=== PATIENT | female | born 1935 | race Caucasian/White ===

== ENCOUNTER → 2017-05-08 | Outpatient (CLI) | payer MEDICARE ==
--- NOTE | 2017-05-08 15:41 | KCIC ---
Left lower extremity venous doppler ultrasound History: Left lower extremity pain and swelling, redness Comparison: None Findings: Multiple grayscale, color, and duplex spectral analysis sonographic images were acquired of the left lower extremity veins to evaluate for the presence of DVT. There is normal phasicity. Normal compression, color-flow, and augmentation is demonstrated from the left common femoral to the popliteal veins. There is normal color flow of the proximal profunda femoris vein. There is normal color flow of segments of the calf veins. There is soft tissue edema of the calf. Impression: 1. There is no evidence of deep venous thrombosis from the left common femoral to popliteal veins. 2. There is nonspecific soft tissue edema of the calf. Electronically signed by: Pedro Fulton MD (05/08/2017 3:38 PM) [facility]
== END | disposition home or self-care (01) ==
LOC: KCIC US 14:20
PROVIDERS: ATTEND Nurse Practitioner Adult Health
DX: M79.605 Pain in left leg (principal); R60.0 Localized edema
CPT/HCPCS: 93971

== ENCOUNTER → 2018-03-19 | Outpatient (CLI) | payer MEDICARE | END | disposition home or self-care (01) | LOC: KCIC US 13:28 | DX: M51.36 Other intervertebral disc degeneration, lumbar region (principal); M79.89 Other specified soft tissue disorders; M48.54XD Collapsed vertebra, not elsewhere classified, thoracic region, subsequent encounter for fracture with routine healing; M25.78 Osteophyte, vertebrae | CPT/HCPCS: 72148; 93971 ==

== ENCOUNTER → 2018-06-03 | Outpatient (CLI) | payer MEDICARE ==
[~2018-06-03] MED LIST: ALEN70TA5 PO; AMLO5TAB7 PO; GABA-586 PO; HYDR25TA9 PO; IOHEXOL 180 MG/ML 10 ML VIAL. ONE; LEVO75TA5 PO; LIDOCAINE 2% PF 2ML VIAL. ONE; LORA0.5T PO; PRAV40TA2 PO; methylPREDNISolone ACETATE 40 MG/ML VIAL. ONE; methylPREDNISolone ACETATE 80 MG/ML VIAL. ONE
--- NOTE | 2018-06-03 20:26 | PAIN ---
DATE OF SERVICE: 06/03/2018 CHIEF COMPLAINT: Low back and left lower extremity pain. HISTORY OF PRESENT ILLNESS: This is an 83-year-old female who presents with history of pain in the low back and left leg in the posterior gluteus, posterior thigh radiating to the posterior knee, posterior calf and into the ankle and foot with numbness in the foot on the left side. It has been going on for about a year on and off. It is getting much worse over the past 3-4 months. The patient reports it is worse with walking, standing, change in positions. She has been using a walker, which she normally does not over the past several months because of the pain. The patient reports it is sharp, shooting, intermittent in intensity with numbness in the foot, primarily worse after up and walking and worse in the evening. The patient reports it awakens her most of the night and every few hours. The pain in her back and leg does not affect her bowel or bladder control but does affect her ability to walk significantly and again, she is using a walker to ambulate at all times. The patient has had some trigger point injections in the past as well as some physical therapy and doing some stretching exercises on her own currently but not significantly decreasing the pain. The patient did have medication. She is not sure what the name of it was for the pain, but it did decrease it orally. The patient has had no other treatments, no other chiropractic manipulations or other therapies or treatments at this time. The patient rates her disability rate from 0-10, 10 being the worst, is a 6 with recreation and social activity, 5 with self-care, 4 with life support activities and 7 with family and home responsibilities. The patient did have an MRI scan of lumbar spine showing at the L4-L5 and L5-S1 levels, each with moderate posterior disk bulging and severe narrowing of the left neural foramen in part from disk osteophyte complex at L4-L5 as well as the posterior facets contacting the exiting left L4 nerve root. L5-S1 shows contact at the exiting left L5 nerve root again with significant narrowing of the distal left neural foramen and extraforaminal region. The patient reports no complete loss of motor function, significant fatigability, especially with the left leg. PAST MEDICAL HISTORY: Significant for arthritis, hypertension, history of colon cancer, now in remission, kidney stents, left foot neuropathy. PREVIOUS SURGERIES: Include colon resection and colostomy in 2009, cataract extraction bilaterally in the past. CURRENT MEDICATIONS: Include lorazepam, alendronate, pravastatin, hydrochlorothiazide, gabapentin, amlodipine, and levothyroxine. ALLERGIES: The patient has no known drug allergies. FAMILY HISTORY: Significant for no major conditions she is aware of. SOCIAL HISTORY: The patient does not smoke, does not drink alcohol, does not use any illegal or recreational drugs. Lives with her [id number] and lives locally in [place], [place] and is currently retired. REVIEW OF SYSTEMS: Positive for those items mentioned in history of present illness. All systems reviewed and were negative. It is complete, full and well documented on the patient's chart. PHYSICAL EXAMINATION: VITAL SIGNS: The patient's blood pressure is 154/73, pulse is 80, respirations are 20, temperature 97.3 degrees Fahrenheit, height is 5 feet 0 inches, weight is 167 pounds. GENERAL: The patient is awake, alert, oriented, appropriate, very pleasant demeanor. HEENT: Head shows normocephalic, atraumatic. Extraocular movements are intact, symmetrical. Oral cavity: Mucous membranes moist and pink. Dentition is intact. NECK: Shows anterior throat supple without palpable lymphadenopathy noted. Swallow reflex is symmetrical. CHEST: Shows normal on inspection. Breath sounds clear to auscultation bilaterally. HEART: Shows S1, S2 clear. No murmurs auscultated. ABDOMEN: Soft, nontender, nondistended. No palpable organomegaly is noted. No rebound or guarding demonstrated. BACK: Shows spine grossly in the midline. Normal appearing thoracic kyphosis and lumbar lordotic curvature. Lumbar paraspinous musculature shows symmetrical on inspection, on palpation shows some moderate tenderness but only diffusely and it is throughout the upper, middle and lower distribution of the paraspinous muscles without radiation, without trigger points. The patient has good rotational motion of lumbar spine, both laterally as well as extension and flexion without significant difficulty. LOWER EXTREMITIES: Show deep tendon reflexes at 1+ in the patellar and tendo calcaneus tendons. Motor exam is approximately 4 on a scale of 5 with left dorsiflexion, extension, 5/5 on the right, quadriceps and hamstring flexion 4/5 left, 5/5 right as well. Peripheral pulses are 1+ posterior tibia. No peripheral edema is noted. Lower extremities are warm and dry to touch, equal in color and appearance. Straight leg raise noted to be negative bilaterally for reproduction of radicular pain. Gaenslen's and Javi's maneuvers are negative bilaterally as well. The patient is able to stand, has difficulty trying to stand with all of her weight on her left leg as she does lose balance very quickly. Again, she is walking with a significant limping gait favoring the left lower extremity and uses a 4-point walker to ambulate. SKIN: Shows warm and dry, good turgor. No edema. No sores, rashes or bruising. IMPRESSION: 1. This is an 83-year-old female with approximate 1-year history of low back, left lower extremity pain, worse over the past several months in a radicular fashion. 2. MRI scan of lumbar spine as noted. 3. Arthritis. 4. Hypertension. 5. History of colon cancer. PLAN: Options were discussed with the patient including conservative medical management, physical therapy, interventional techniques. She would like to pursue interventional techniques. We discussed a lumbar epidural steroid injection using descriptions as well as anatomical models to describe the procedure. Risks were then discussed including, but not limited to bleeding, infection, possibility of epidural hematoma and subsequent neurological compromise, dural puncture, headaches, spinal cord and/or nerve damage, side effects of steroid medication and poor results regarding pain control. The patient understands and wished to proceed. The patient will return to clinic in approximately 2 weeks for followup. She was counseled to return appointment, activity level and side effects to be aware of. DIAGNOSES: Lumbar radiculopathy with lumbar degenerative disk disease and lumbar spinal stenosis. PROCEDURE: Lumbar epidural steroid injection, translaminar approach at the L5-S1 level using C-arm fluoroscopic guidance under sterile prep and drape using local anesthetic. MEDICATION INJECTED: A total of 120 mg Depo-Medrol plus 10 mL of preservative-free normal saline and 2 mL of Isovue for contrast. CONDITION AT DISCHARGE: Stable. The patient tolerated procedure well, had no complications. MITCHELL LEAL MD DR: ELBERT/keanu JOB#: [id number] / [id number] ecc ABRAHAM MULTANI MD
== END | disposition home or self-care (01) ==
LOC: PNCL 09:25
PROVIDERS: ATTEND Anesthesiology
DX: M51.16 Intervertebral disc disorders with radiculopathy, lumbar region (principal); M48.061 Spinal stenosis, lumbar region without neurogenic claudication; I10 Essential (primary) hypertension; M19.90 Unspecified osteoarthritis, unspecified site; Z85.038 Personal history of other malignant neoplasm of large intestine; G62.9 Polyneuropathy, unspecified; Z90.49 Acquired absence of other specified parts of digestive tract; Z93.3 Colostomy status; Z98.42 Cataract extraction status, left eye; Z98.41 Cataract extraction status, right eye; Z96.1 Presence of intraocular lens; Z79.899 Other long term (current) drug therapy
CPT/HCPCS: 62323; J1030; J1040; J2001; Q9965

== ENCOUNTER → 2018-06-18 | Outpatient (CLI) | payer MEDICARE ==
[~2018-06-18] MED LIST changes: -IOHEXOL 180 MG/ML 10 ML VIAL. ONE; -LIDOCAINE 2% PF 2ML VIAL. ONE; -methylPREDNISolone ACETATE 40 MG/ML VIAL. ONE; -methylPREDNISolone ACETATE 80 MG/ML VIAL. ONE
--- NOTE | 2018-06-18 19:18 | PAIN ---
DATE OF SERVICE: 06/18/2018 DIAGNOSES: Lumbar radiculopathy with lumbar spinal stenosis, lumbar degenerative disk disease low. HISTORY OF PRESENT ILLNESS: The patient is an 83-year-old female who returns for followup status post lumbar epidural steroid injection x 1. The patient reports about 80% improvement overall, is feeling much better. The pain in her left leg is almost completely gone. She has some numbness in the left foot only, but is not bothering her much at all. The patient reports she is doing quite well. Reports her pain is 0 on a scale of 10 on average, worst and its least and is 0 today. The patient reports she has been increasing her activities with greater ease and comfort, sleeping better, walking with her cane still, not a walker. She get rid of her walker, using a cane now in her right hand, increased household activities, increased ability to get in and out of a car and traveling. The patient reports she is doing quite well, is very pleased with her progress: The patient reports no new motor or sensory deficits, no new bowel or bladder incontinence or other complaints. PHYSICAL EXAMINATION: VITAL SIGNS: Today, the patient's blood pressure is 140/77, pulse 77, respirations are 20, temperature 97.4 degrees Fahrenheit, weight is 165 pounds. GENERAL: The patient is awake, alert, oriented, appropriate, very pleasant demeanor. HEENT: Head is normocephalic, atraumatic. Extraocular movements are intact, symmetrical. Oral cavity: Mucous membranes moist and pink. Dentition is intact. NECK: Shows anterior throat supple without palpable lymphadenopathy noted. Swallow reflex symmetrical. CHEST: Shows normal on inspection. Breath sounds clear to auscultation bilaterally. HEART: Shows S1, S2 clear. No murmurs auscultated. ABDOMEN: Soft, nontender, nondistended. No palpable organomegaly is noted. No rebound or guarding demonstrated. BACK: The patient's back shows spine grossly in the midline. Slight exaggeration of thoracic kyphosis and minor flattening of lumbar lordotic curvature. Lumbar paraspinous muscle shows symmetrical on inspection and palpation shows some moderate tenderness bilaterally, but only diffusely without significant radiation. The patient has good rotational motion of lumbar spine, both laterally as well as extension and flexion without difficulty. No tenderness over the sacrum, sacroiliac regions or over the spinous processes. EXTREMITIES: Lower extremities show deep tendon reflexes at 1+ in the patellar and tendo calcaneus tendons. Motor exam is strong with mostly 4 on a scale 5 on the left and 5/5 on the right dorsiflexion, extension, but intact. Peripheral pulses are 1+ posterior tibia. No peripheral edema is noted. Options were discussed with the patient. The patient's old chart was reviewed as her current medication regimen updated. Current review of systems updated today as well and she would like to hold on any further injections at this time. We will have her increase her activity as tolerated. Continue with daily walking and stretching and strengthening exercises. The patient will follow up this time on as needed basis. MITCHELL LEAL MD DR: ELBERT/nts JOB#: [id number] / [id number]
== END | disposition home or self-care (01) ==
LOC: PNCL 09:42
PROVIDERS: ATTEND Anesthesiology
DX: M51.16 Intervertebral disc disorders with radiculopathy, lumbar region (principal); M48.061 Spinal stenosis, lumbar region without neurogenic claudication
CPT/HCPCS: G0463

== ENCOUNTER → 2018-07-21 | Outpatient (CLI) | payer MEDICARE ==
[~2018-07-21] MED LIST changes: +IOHEXOL 180 MG/ML 10 ML VIAL. ONE; +methylPREDNISolone ACETATE 40 MG/ML VIAL. ONE; +methylPREDNISolone ACETATE 80 MG/ML VIAL. ONE
--- NOTE | 2018-07-21 20:21 | PAIN ---
DATE OF SERVICE: 07/21/2018 PROGRESS NOTE FOR PAIN CLINIC DIAGNOSES: Lumbar radiculopathy with lumbar spinal stenosis and lumbar degenerative disk disease. HISTORY OF PRESENT ILLNESS: The patient is an 83-year-old female who returns for followup status post lumbar epidural steroid injection x 1. The patient reports about 75%-80% improvement initially but now, the pain is returning in the low back and left lower extremity. The patient reports it is much better than it was, still worse at night and if the patient has been on her feet for a long period of time with a dull aching pain in the low back, described as dull and shooting in the left gluteus and thigh. The patient reports it is a 5 on a scale of 10 at all times, average, worst and its least and is a 5 today. The patient reports no new motor or sensory deficits and no new bowel or bladder incontinence. It awakens her from sleep occasionally if she lies on her left side, otherwise doing fairly well. PHYSICAL EXAMINATION: VITAL SIGNS: The patient's blood pressure 159/74, pulse 71, respirations 18 and temperature is 97.4 degrees Fahrenheit. Height is 5 feet 0 inch and weight is 171 pounds. GENERAL: The patient is awake, alert, oriented, appropriate and very pleasant demeanor. HEENT: Head shows normocephalic and atraumatic. Extraocular movements are intact and symmetrical. Oral cavity: Mucous membranes are moist and pink. Dentition is intact. NECK: Shows anterior throat supple without palpable lymphadenopathy noted. Swallow reflex symmetrical. CHEST: Shows normal on inspection. Breath sounds clear to auscultation bilaterally. HEART: Shows S1 and S2 clear. No murmurs auscultated. ABDOMEN: Soft, nontender and nondistended. No palpable organomegaly is noted. No rebound or guarding demonstrated. BACK: Shows spine grossly in the midline. Normal appearing thoracic kyphosis and some minor flattening of the lumbar lordotic curvature. Lumbar paraspinous muscle shows symmetrical on inspection, on palpation shows some moderate tenderness diffusely bilaterally but only diffusely without radiation. EXTREMITIES: The patient's lower extremities show deep tendon reflexes 1+ in the patellar and tendo-calcaneus tendons are equal. Motor exam is strong with approximately 4 on a scale of 5, left dorsiflexion and extension, 5/5 on the right. The patient's peripheral pulses are 1+ posterior tibia. No peripheral edema is noted bilaterally. Options were discussed with the patient. The patient's old chart was reviewed as well as her current medication regimen updated. Current review of systems updated today as well. We will proceed with a second in the series of lumbar epidural steroid injection today with fluoroscopic guidance. Risks were again discussed including, but not limited to bleeding, infection, possibility of epidural hematoma and subsequent neurological compromise, dural puncture, headaches, spinal cord and/or nerve damage, side effects of steroid medication and poor results regarding pain control. The patient understands and wished to proceed. The patient will return to the clinic in approximately 2 weeks for followup, was counseled as to return appointment, activity level and side effects to be aware of. DIAGNOSIS: Lumbar radiculopathy with lumbar spinal stenosis and lumbar degenerative disk disease. PROCEDURE: Lumbar epidural steroid injection, translaminar approach at L5-S1 level using C-arm fluoroscopic guidance under sterile prep and drape using local anesthetic. MEDICATION INJECTED: A total of 120 mg Depo-Medrol plus 10 mL of preservative-free normal saline and 2 mL of Isovue for contrast. CONDITION AT DISCHARGE: Stable. The patient tolerated the procedure well and had no complications. MITCHELL LEAL MD DR: ELBERT/keanu JOB#: [id number] / [id number]
== END | disposition home or self-care (01) ==
LOC: PNCL 10:37
PROVIDERS: ATTEND Anesthesiology
DX: M51.16 Intervertebral disc disorders with radiculopathy, lumbar region (principal); M48.061 Spinal stenosis, lumbar region without neurogenic claudication
CPT/HCPCS: 62323; J1030; J1040; Q9965

== ENCOUNTER → 2018-08-07 | Outpatient (CLI) | payer MEDICARE ==
[~2018-08-07] MED LIST changes: +HYDR-2145 PO; -HYDR25TA9 PO; -IOHEXOL 180 MG/ML 10 ML VIAL. ONE; -methylPREDNISolone ACETATE 40 MG/ML VIAL. ONE; -methylPREDNISolone ACETATE 80 MG/ML VIAL. ONE
--- NOTE | 2018-08-07 20:52 | PAIN ---
DATE OF SERVICE: 08/07/2018 PROGRESS NOTE FOR PAIN CLINIC DIAGNOSES: Lumbar radiculopathy with lumbar degenerative disk disease and lumbar spinal stenosis. HISTORY OF PRESENT ILLNESS: The patient is an 83-year-old female who returns for followup status post lumbar epidural steroid injections x 2. The patient reports near 100 % improvement after her last injection, still lasting with no longer having significant pain in the low back or the left lower extremity. The patient reports her leg is doing much better. She is quite pleased with her progress, has no new motor or sensory deficits, no new bowel or bladder incontinence or other complaints. She is sleeping well at night, increased her distance walking, doing activities at the home, traveling with much greater ease and comfort and is doing quite well. The patient reports no new motor or sensory deficits. The patient reports her pain is a 0 on a scale of 10 at its worst, average and at its least and is a 0 today. The patient reports otherwise doing very well. PHYSICAL EXAMINATION: VITAL SIGNS: The patient's blood pressure is 122/66, pulse 87, respirations 18, temperature is 98.0 degrees Fahrenheit, height is 5 feet 0 inches and weight is 169 pounds. GENERAL: The patient is awake, alert, oriented, appropriate and very pleasant demeanor. HEENT: Shows normocephalic and atraumatic. Extraocular movements are intact and symmetrical. Oral cavity: Mucous membranes are moist and pink. Dentition is intact. NECK: Shows anterior throat is supple without palpable lymphadenopathy noted. Swallow reflex is symmetrical. CHEST: Shows normal with inspection. Breath sounds are clear to auscultation bilaterally. HEART: Shows S1 and S2 clear. No murmurs are auscultated. ABDOMEN: Soft, nontender and nondistended. No palpable organomegaly is noted. No rebound or guarding demonstrated. BACK: Shows spine grossly in the midline. Normal appearing thoracic kyphosis and lumbar lordotic curvature. Lumbar paraspinous muscle shows symmetrical on inspection. On palpation shows some moderate tenderness only diffusely without radiation. The patient has full rotational motion both laterally greater than 10 degrees, right and left as well as extension greater than 10 degrees, forward flexion 45 degrees without significant pain or discomfort. EXTREMITIES: The patient's lower extremities show deep tendon reflexes at 1+ in the patella and tendo calcaneus tendons. Motor exam is to approximately a 4 on a scale of 5 on the left dorsiflexion and extension and 5/5 on the right. Peripheral pulses are 1+ posterior tibial. No peripheral edema is noted bilaterally. PLAN: Options were discussed with the patient. The patient's old chart was reviewed as was her current medication regimen updated. Current review of systems updated today as well. We will hold on any further injections as the patient is doing quite well. Encouraged her to increase her activity as tolerated. She will still do some stretching and strengthening exercises that she has been doing on her own and walking as she is tries to do this daily. The patient will follow up at this time on as needed basis. MITCHELL LEAL MD DR: ELBERT/keanu JOB#: [id number] / [id number]
== END | disposition home or self-care (01) ==
LOC: PNCL 10:06
PROVIDERS: ATTEND Anesthesiology
DX: M51.16 Intervertebral disc disorders with radiculopathy, lumbar region (principal); M48.061 Spinal stenosis, lumbar region without neurogenic claudication
CPT/HCPCS: G0463

== ENCOUNTER → 2021-01-16 | Outpatient (CLI) | payer MEDICARE ==
[~2021-01-16] MED LIST changes: -ALEN70TA5 PO; +ALEN70TA71 PO; +AMLO-186 PO; -AMLO5TAB7 PO; -GABA-586 PO; +GABA300C18 PO
--- NOTE | 2021-01-16 11:21 | KCIC ---
MRI of the lumbar spine without contrast 01/16/2021 CLINICAL HISTORY: Low back pain with left leg weakness. TECHNIQUE: Unenhanced T1-weighted and T2-weighted sagittal and axial and inversion recovery sagittal images of the lumbar spine were obtained. FINDINGS: Comparison study is dated 03/19/2018. Mild to moderate S-shaped curvature of the thoracolumbar spine is seen. Degenerative signal changes a nd loss of height are seen involving all of the disks of the lumbar spine. Degenerative signal change s are seen within the marrow surrounding these discs. An old compression fracture of the superior end plate of the T12 vertebral body is again seen. No acute compression fracture of the lumbar vertebrae is noted. The patient appears to be post bilateral sacral plasty type procedure for old sacral insuff iciency fractures. The conus medullaris is normal morphology, position, and signal characteristics. A n oval-shaped high signal intensity structure is seen within the posterior right pelvis which measure s 3.9 cm in size. This may represent a right ovarian cyst. Multiple rounded high signal intensity les ions are seen scattered throughout both kidneys on the T2-weighted images. These measure 3 mm to 4.5 cm in size. They likely represent cysts. No further imaging evaluation is recommended. At the L1-2 disc space there is a mild generalized disc bulge. Degenerative changes are seen involvin g the facet joints bilaterally. There are small facet joint effusions bilaterally. There is mild liga mentum flavum hypertrophy bilaterally. These findings when combined do not result in significant cent ral spinal canal or neural foraminal stenosis. At the L2-3 disc space there is a mild generalized disc bulge. Degenerative changes are seen involvin g the facet joints bilaterally. There is mild ligamentum flavum hypertrophy bilaterally. These findin gs when combined do not result in significant central spinal canal or neural foraminal stenosis. At the L3-4 disc space there is a mild generalized disc bulge. Degenerative changes are seen involvin g the facet joints bilaterally. There is mild ligamentum flavum hypertrophy bilaterally. These findin gs when combined do not result in significant central spinal canal stenosis. Mild left neural foramin al stenosis is seen. The right neural foramen is patent. At the L4-5 disc space there is a mild to moderate generalized disc bulge. This is eccentric to the l eft. Degenerative changes are seen involving the facet joints bilaterally. There is moderate ligament um flavum hypertrophy bilaterally. These findings when combined result in mild to moderate left great er than right central spinal canal stenosis. Moderate to severe left neural foraminal stenosis is see n. The right neural foramen is patent. At the L5-S1 disc space there is a mild to moderate generalized disc bulge. This is eccentric to the left. Degenerative changes are seen involving the facet joints bilaterally. These findings when combi radha do not result in significant central spinal canal stenosis. Mild to moderate left neural foramina l stenosis is seen. IMPRESSION: The changes of degenerative disc disease are seen throughout the lumbar spine. These find ings result in mild to moderate left greater than right central spinal canal stenosis at L4-5 and mil d left neural foraminal stenosis is seen at L3-4. Moderate to severe left neural foraminal stenosis i s seen at L4-5. Mild to moderate left neural foraminal stenosis is seen at L5-S1. Electronically signed by: Theodore Bauer MD (01/16/2021 11:19 AM) [id number]
== END ==
LOC: KCIC MRI 09:46
PROVIDERS: ATTEND Family Medicine
DX: S32.000A Wedge compression fracture of unspecified lumbar vertebra, initial encounter for closed fracture (principal); M51.36 Other intervertebral disc degeneration, lumbar region; M48.07 Spinal stenosis, lumbosacral region; R29.898 Other symptoms and signs involving the musculoskeletal system; X58.XXXA Exposure to other specified factors, initial encounter; Y93.89 Activity, other specified; Y92.89 Other specified places as the place of occurrence of the external cause; Y99.8 Other external cause status
CPT/HCPCS: 72148

== ENCOUNTER → 2021-01-30 | Outpatient (CLI) | payer MEDICARE ==
[~2021-01-30] MED LIST changes: +AMIT10TA PO; +IOHEXOL 180 MG/ML 10 ML VIAL. ONE; +methylPREDNISolone ACETATE 40 MG/ML VIAL. ONE; +methylPREDNISolone ACETATE 80 MG/ML VIAL. ONE
--- NOTE | 2021-01-30 11:54 | PDOC ---
Progress Note - Pain Clinic Date of Service: DOS: DATE: 01/30/21 TIME: 11:52 Diagnosis: Dx: Lumbar radiculopathy with lumbar degenerative disease lumbar spinal stenosis History or Present Illness: HPI: 85-year-old female returns for follow-up status post lumbar epidural steroid injections most recently in July 2018 patient had 100% improvement she reports until about the past 1 month ago the pain began to return the low back left lower extremity posterior gluteus posterior lateral thigh posterior calf with some numbness in the leg with walking and standing patient reports that before that he was doing very well increasing activity distance walking doing household activities try with greater ease and comfort and sleeping better at night patient reports he still sleeps well at night pain generally is not bothered she sitting or laying down is worse with standing walking especially standing in 1 place patient reports its aching and dull can be sharp and shooting in the leg as well in the left side patient reports a 5 on a scale of 10 at its worst for an average for its least is a 4 today. Patient reports no motor or sensory deficits no new bowel or bladder incontinence or other complaints. Physical Exam: VS: Blood pressure is 141/69 pulse 70 respirations 20 temperature is 98.2 F height 5 feet 0 inches weight 157 pounds PE: PHYSICAL EXAMINATION: GENERAL: The patient is awake, alert, oriented, appropriate, very pleasant demeanor HEENT: Shows normocephalic, atraumatic. Extraocular movements are intact and symmetrical. Oral cavity: Mucous membranes moist and pink. NECK: Shows anterior throat supple without palpable lymphadenopathy noted. Swallow reflex symmetrical. CHEST: Shows normal on inspection. Breath sounds are clear bilaterally. HEART: Shows S1, S2 clear. No murmurs auscultated. ABDOMEN: Soft, nontender, nondistended. No palpable organomegaly is noted. No rebound or guarding demonstrated. BACK: Shows spine grossly in the midline. Normal-appearing cervical lordotic curvature. There is some increased thoracic kyphosis, some minor flattening of the lumbar lordotic curvature. Well-healed surgical scar is noted in the midline. Lumbar paraspinous muscles show symmetrical on inspection, on palpation shows some moderate tenderness diffusely throughout the upper, middle and lower distribution of the paraspinous muscles bilaterally and also into the lower thoracic paraspinous musculature, firm and tender, but without specific trigger points, without radiation of pain. The patient has good rotational motion of the lumbar spine, both laterally as well as extension and flexion without significant difficulty. No tenderness over the spinous processes, sacrum or sacroiliac regions. EXTREMITIES: Lower extremities show deep tendon reflexes 1 in the patellar and tendo calcaneus tendons. Motor exam is 5 on a scale of 5 with right dorsiflexion, extension, quadriceps and hamstring flexion and 4/5 on the left. Peripheral pulses are 1+ posterior tibial. No peripheral edema is noted bilaterally. Lower extremities are warm and dry to touch, equal in color and appearance. SKIN: Shows warm and dry, good turgor. No edema. No sores, rashes or bruising throughout. Procedure: Procedure: Options were discussed with the patient. Patient chart was reviewed as her current medication regimen updated current review of systems updated today as well. We will proceed with a lumbar epidural steroid injection today with fluoroscopic guidance. Risks were discussed including but not limited to: Bleeding, infection, possibility of epidural hematoma and subsequent neurological compromise, dural puncture, headaches, spinal cord and/or nerve damage, side effects of steroid medication, and poor results regarding pain control. Patient understands and wished to proceed. Patient will return to clinic in approximate 2 weeks for follow-up, was counseled as to return appointment activity level and side effects to be aware of. Medication Injected: Med Injected: Procedure is lumbar epidural steroid injection under local anesthetic using sterile prep and drape at the L5-S1 level using C-arm fluoroscopic guidance in both AP and lateral views medications injected is 120 mg Depo-Medrol +10mL pres ervative-free normal saline and 2 mL contrast- condition at discharge is stable patient tolerated procedure well had no complications. Condition at Discharge: Condition at Discharge: Condition at discharge stable, patient tolerated the procedure well and had no complications. MITCHELL LEAL MD January 30, 2021 11:54
--- NOTE | 2021-01-30 12:14 | PDOC4 ---
PROCEDURE Procedure Patient was consented for lumbar epidural steroid injection. Risks were dis cussed including but not limited to: Bleeding, infection, possibility of epidural hematoma and subsequent neurological compromise, dural puncture, headaches, spinal cord and/or nerve damage, side effects of steroid medication, and poor results regarding pain control. Patient understands and wished to proceed. Procedure is lumbar epidural steroid injection under local anesthetic using sterile prep and drape at the L5-S1 level using C-arm fluoroscopic guidance in both AP and lateral views medications injected is 120 mg Depo-Medrol +10mL preservative-free normal saline and 2 mL contrast- condition at discharge is stable patient tolerated procedure well had no complications. MITCHELL LEAL MD January 30, 2021 12:14
== END | disposition home or self-care (01) ==
LOC: PNCL 10:43
PROVIDERS: ATTEND Anesthesiology
DX: M51.16 Intervertebral disc disorders with radiculopathy, lumbar region (principal); M48.061 Spinal stenosis, lumbar region without neurogenic claudication; Z79.899 Other long term (current) drug therapy
CPT/HCPCS: 62323; J1030; J1040; Q9965

== ENCOUNTER → 2021-02-22 | Outpatient (CLI) | payer MEDICARE ==
[~2021-02-22] MED LIST changes: -IOHEXOL 180 MG/ML 10 ML VIAL. ONE; -methylPREDNISolone ACETATE 40 MG/ML VIAL. ONE; -methylPREDNISolone ACETATE 80 MG/ML VIAL. ONE
--- NOTE | 2021-02-22 11:22 | PDOC ---
Progress Note - Pain Clinic Date of Service: DOS: DATE: 02/22/21 TIME: 11:18 Diagnosis: Dx: Lumbar radiculopathy with lumbar degenerative disc disease and lumbar spinal stenosis History or Present Illness: HPI: 86-year-old female returns for follow-up status post lumbar epidural steroid injection times 07 Jan 2020 50,021. Patient reports she did very well 100% improvement with the pain completely gone in the low back and left lower extremity. Patient reports her pain is 0 at all times and has been since about 1 to 2 days after the injection patient reports she has been increasing her activity with distance walking doing household activities travel with greater ease and comfort sleeping better at night does not awaken her from sleep, patient reports that he is using a walker still but is getting around much easier and very comfortable very pleased with her progress. Patient reports no new motor or sensory deficits no new bowel or bladder incontinence or other complaints. Physical Exam: VS: Blood pressure is 139/76 pulse 77 respirations 18 temperature 90.1 F height 5 foot 0 inches weight is 155 pounds PE: PHYSICAL EXAMINATION: GENERAL: The patient is awake, alert, oriented, appropriate, and very pleasant in demeanor HEENT: Shows normocephalic, atraumatic. Extraocular movements are intact and symmetrical. NECK: Shows anterior throat supple without palpable lymphadenopathy noted. Swallow reflex symmetrical. ABDOMEN: Soft, nontender, nondistended, obese. BACK: Shows spine grossly in the midline. Normal-appearing cervical lordotic curvature. There is slightly increased thoracic kyphosis, some minor flattening of the lumbar lordotic curvature. Lumbar paraspinous muscles show symmetrical on inspection, on palpation shows some moderate tenderness diffusely throughout the upper, middle and lower distribution of the paraspinous muscles without sp ecific trigger points, without radiation of pain. The patient has good rotational motion of the lumbar spine, both laterally as well as extension and flexion without significant difficulty. EXTREMITIES: Lower extremities show deep tendon reflexes 1 in the patellar and tendo calcaneus tendons. Motor exam is 5 on a scale of 5 with right dorsiflexion, extension, quadriceps and hamstring flexion and 4/5 on the left. Peripheral pulses are 1+ posterior tibial. No peripheral edema is noted bilaterally. Lower extremities are warm and dry to touch, equal in color and appearance. SKIN: Shows warm and dry, good turgor. No edema. No sores, rashes or bruising throughout. Procedure: Procedure: Options were discussed with the patient. Patient chart reviewed as her current medication regimen updated current review of systems updated today as well. Patient doing about her percent better and we will hold on any further injections at this time. Patient will keep activity level as tolerated as well as stretching 3 exercises daily. Patient will return to clinic at this time on as-needed basis. Medication Injected: Med Injected: None Condition at Discharge: Condition at Discharge: Condition at discharge is stable. MITCHELL LEAL MD Feb 22, 2021 11:21
== END | disposition home or self-care (01) ==
LOC: PNCL 10:29
PROVIDERS: ATTEND Anesthesiology
DX: M51.16 Intervertebral disc disorders with radiculopathy, lumbar region (principal); M48.061 Spinal stenosis, lumbar region without neurogenic claudication; Z79.899 Other long term (current) drug therapy
CPT/HCPCS: 99212; G0463

== ENCOUNTER → 2021-04-09 | Outpatient (CLI) | payer MEDICARE ==
--- NOTE | 2021-04-09 10:32 | KCIC ---
EXAM: DUAL ENERGY X-RAY ABSORPTIOMETRY (DEXA). HISTORY: Postmenopausal screening. FINDINGS: The lowest measured T-score is -1.8 in the left hip, based on a bone mineral density of 0.7 23 g/cm^2. Refer to the worksheets for full detail. There has been a 2.7 percent decrease in density of the left hip and 7.9 percent decrease in density of the lumbar spine compared to a study performed 06/09/2007. IMPRESSION: 1. Low bone mass. Bone mineral density yields a T-score between -1.0 and -2.5. Fracture risk is incre ased. 2. FRAX report: Not calculated. METHODOLOGY: Dual energy x-ray absorptiometry was performed to measure bone mineral density. The foll owing analysis is based on the 2019 Official Positions of the International Society for Clinical Dens itometry: Measurements of the hips and the average of L1-L4 are preferred. When the spine and/or hip cannot be feasibly measured or interpreted, or in the setting of hyperparathyroidism, distal radial bone minera l density may be measured. The lumbar spine T-score is based on the average bone mineral density of L1-L4. In the setting of art ifact or anatomic abnormality, some lumbar levels may be excluded, and the remaining levels used for calculation. A single lumbar level is not used for diagnosis, and if only a single level is available for assessment, another anatomic site will be used to assign a diagnosis. The hip T-score is based on the bone mineral density measurement of the femoral neck or total proxima l femur of either side, whichever is lowest. Bilateral mean values are not used for diagnosis. The forearm T-score is derived from 33% of the distal radius of the nondominant forearm. Electronically signed by: Veronika Taylor MD (04/09/2021 10:30 AM) [id number]
== END ==
LOC: KCIC DEXA 09:48
PROVIDERS: ATTEND Family Medicine
DX: M81.0 Age-related osteoporosis without current pathological fracture (principal)
CPT/HCPCS: 77080

== ENCOUNTER 2021-08-16 10:13 | Emergency (ER) | payer MEDICARE ==
[~2021-08-16] VITALS: Ht 152.4 cm; Wt 71.0 kg
[2021-08-16 11:47] LABS: BASO # 0.1 x10^3/uL (0.0-0.2); BASO % 1 % (0-3); EOS % 1 % (0-3); HEMATOCRIT 35.7 % (36.0-47.0); HEMOGLOBIN 12.7 g/dL (12.0-15.5); LYMPH # 0.9 x10^3/uL (1.0-4.8); LYMPH % 12 % (24-48); MEAN CORPUSCULAR HEMOGLOBIN 31 pg (25-35); MEAN CORPUSCULAR HGB CONC 36 g/dL (31-37); MEAN CORPUSCULAR VOLUME 88 fL (79-100); MONO # 0.4 x10^3/uL (0.0-1.1); MONO % 6 % (0-9); NEUT # 6.1 x10^3/uL (1.8-7.7); NEUT % 80 % (31-73); PLATELET COUNT 353 x10^3/uL (140-400); RED BLOOD COUNT 4.06 x10^6/uL (3.50-5.40); RED CELL DISTRIBUTION WIDTH 13.6 % (11.5-14.5); WHITE BLOOD COUNT 7.6 x10^3/uL (4.0-11.0)
[2021-08-16 12:09] LABS: CALCIUM 8.9 mg/dL (8.5-10.1); CREATININE 0.9 mg/dL (0.6-1.0); GFR 59.4; POTASSIUM 3.1 mmol/L (3.5-5.1)
[2021-08-16 12:15] LABS: ALBUMIN 3.6 g/dL (3.4-5.0); TOTAL PROTEIN 7.1 g/dL (6.4-8.2)
--- NOTE | 2021-08-16 12:17 | PHYS DOC ---
Past Medical History Past Medical History: High Cholesterol, Hypertension, Hypothyroid Additional Past Medical Histor: COLON CA/CHEMO/RADIATION, peripheral neuropathy Past Surgical History: Other Additional Past Surgical Histo: COLOSTOMY Smoking Status: Never Smoker Alcohol Use: None Drug Use: None General Adult EDM: Chief Complaint: LOWER EXTREMITY SWELLING HPI: HPI: Patient is a 86 year old female past medical history including high blood pressure, high cholesterol, hypothyroid, peripheral neuropathy who presents with bilateral lower extremity swelling. Patient denies pain associated with her lower extremity swelling, however is concerned as she has never had swelling like this in the past. Patient denies history of congestive heart failure or renal impairment. She was scheduled to see her primary care provider, but when she called and told them she had lower extremity swelling, they directed her to the emergency department. She ambulates at home with a walker and has not been recently immobilized. Patient does have history of colon cancer with colectomy, however does not have active cancer at this time. Patient denies chest pain, palpitations, shortness of breath, cough. She has no other complaints. Review of Systems: Review of Systems: Constitutional: Denies fever or chills. Eyes: Denies change in visual acuity or visual field deficits. HENT: Denies nasal congestion or sore throat. Respiratory: See HPI Cardiovascular: See HPI GI: Denies abdominal pain, nausea, vomiting, bloody stools or diarrhea. : Denies dysuria or hematuria. Musculoskeletal: Denies back pain or joint pain. Integument: Denies rash or other skin lesions. Neurologic: Denies headache, focal weakness or sensory changes. Heart Score: C/O Chest Pain: No Allergies: Allergies: Allergies Coded Allergies Type Severity Reaction Last Updated Verified No Known Drug Allergies 06/03/18 No Physical Exam: PE: Constitutional: Well developed, well nourished, no acute distress, non-toxic appearance. Neck: Normal range of motion, no tenderness, supple, no JVD. Cardiovascular: Heart rate regular rhythm, no murmur. Lungs & Thorax: Bilateral breath sounds clear to auscultation. Abdomen: Bowel sounds normal, soft, no tenderness, no masses, no pulsatile masses. Skin: Warm, dry, no erythema, no rash. Back: No tenderness, no CVA tenderness. Extremities: No tenderness, no cyanosis, no clubbing, ROM intact, bilateral lower extremity swelling distal to the knee with trace pitting, no unilateral swelling, no erythema, no tenderness along deep vein tract, no varicose veins appreciated. Neurologic: Alert and oriented x4, motor function grossly intact including great toe dorsiflexion, sensory function diminished consistent with baseline to lower extremities, no focal deficits noted. Current Patient Data: Labs: Laboratory Tests Test 08/16/21 11:30 White Blood Count 7.6 x10^3/uL (4.0-11.0) Red Blood Count 4.06 x10^6/uL (3.50-5.40) Hemoglobin 12.7 g/dL (12.0-15.5) Hematocrit 35.7 % (36.0-47.0) L Mean Corpuscular Volume 88 fL (79-100) Mean Corpuscular Hemoglobin 31 pg (25-35) Mean Corpuscular Hemoglobin Concent 36 g/dL (31-37) Red Cell Distribution Width 13.6 % (11.5-14.5) Platelet Count 353 x10^3/uL (140-400) Neutrophils (%) (Auto) 80 % (31-73) H Lymphocytes (%) (Auto) 12 % (24-48) L Monocytes (%) (Auto) 6 % (0-9) Eosinophils (%) (Auto) 1 % (0-3) Basophils (%) (Auto) 1 % (0-3) Neutrophils # (Auto) 6.1 x10^3/uL (1.8-7.7) Lymphocytes # (Auto) 0.9 x10^3/uL (1.0-4.8) L Monocytes # (Auto) 0.4 x10^3/uL (0.0-1.1) Eosinophils # (Auto) 0.0 x10^3/uL (0.0-0.7) Basophils # (Auto) 0.1 x10^3/uL (0.0-0.2) Laboratory Tests 08/16/21 11:30 Vital Signs: Vital Signs Date Time Temp Pulse Resp B/P (MAP) Pulse Ox O2 Delivery O2 Flow Rate FiO2 08/16/21 11:23 80 153/68 (96) 98 Room Air 08/16/21 10:44 97.9 20 97.9 EKG: EKG: EKG Interpreted by Dr. Graves at 1120: Regular rate and rhythm 77 bpm with occasional PVCs. No concerning ST-T wave changes. QT interval 426 ms, QTc interval 484 ms. Radiology/Procedures: Radiology/Procedures: PROCEDURE: PORTABLE CHEST 1V XR CHEST 1V History: Reason: swelling / Spl. Instructions: / History: Comparison: None. Findings: No consolidation or pleural effusion. Normal heart size. No pneumothorax. Impression: 1. No acute cardiopulmonary process. Electronically signed by: Juvenal Sanches DO (08/16/2021 12:17 PM) [id number] Course & Med Decision Making: Course & Med Decision Making Pertinent Labs and Imaging studies reviewed. (See chart for details) Work-up today will include lab work, urinalysis, chest x-ray, EKG to evaluate fluid retention. D-dimer result 0.84, however age-adjusted cutoff is 0.86. DVT is unlikely. Rest of her work-up is unremarkable. Patient will be treated with 20 mg p.o. Lasix for the next 5 days and instructed to follow-up with her primary care provider. Patient and her caregiver at bedside understand and are agreeable to discharge plan. Dragon Disclaimer: DragYodle Disclaimer: This electronic medical record was generated, in whole or in part, using a voice recognition dictation system. Departure Departure Impression: Primary Impression: Bilateral lower extremity edema Disposition: HOME / SELF CARE / HOMELESS Condition: STABLE Referrals: NOREEN HUBBARD MD (PCP) Patient Instructions: Edema, [id number] Additional Instructions: Your work-up today did not reveal any emergent cause for your lower leg swelling. Take 1 tablet of Lasix each day for the next 5 days. You may call your family doctor to follow-up early next week. Please return to the emergency department if you develop any new symptoms or your symptoms get worse. Scripts Furosemide (FUROSEMIDE) 20 Mg Tablet 1 TAB PO DAILY for 5 Days, #5 TAB 5 Refills Prov: APURVA MESSER 08/16/21 APURVA MESSER Aug 16, 2021 12:17
--- NOTE | 2021-08-16 12:20 | RAD ---
XR CHEST 1V History: Reason: swelling / Spl. Instructions: / History: Comparison: None. Findings: No consolidation or pleural effusion. Normal heart size. No pneumothorax. Impression: 1. No acute cardiopulmonary process. Electronically signed by: Juvenal Sanches DO (08/16/2021 12:17 PM) [id number]
--- NOTE | 2021-08-16 12:43 | EKG ---
[facility] [address] [place] [address] Test Date: 2021-08-16 Test Time: 11:20:01 Pat Name: IAIN RITCHIE Department: Room: Gender: F Health Information Tech: : 1935 Requested By: APURVA MESSER Order Number: [id number] Reading MD: Samson Narayan Measurements Intervals [place] Rate: 77 P: 0 NM: 150 QRS: -9 QRSD: 96 T: -12 QT: 426 QTc: 484 Interpretive Statements SINUS RHYTHM VENTRICULAR PREMATURE COMPLEX(ES) LEFTWARD AXIS PROLONGED QT ABNORMAL ECG Electronically Signed On 08-16-2021 12:43:10 [employer] by Samson Narayan
[2021-08-16 12:49] LABS: BILIRUBIN,URINE NEGATIVE (NEG); CLARITY,URINE CLEAR; COLOR,URINE YELLOW; NITRITE,URINE NEGATIVE (NEG); PH,URINE 6.5 (<5.0-8.0); PROTEIN,URINE NEGATIVE (NEG-TRACE)
[2021-08-16 13:07] LABS: HYALINE CASTS, URINE OCCASIONAL /HPF
[2021-08-16 13:08] LABS: BACTERIA,URINE 0 /HPF (0-FEW); RBC,URINE 0 /HPF (0-2)
[2021-08-16 13:23] VITALS: BP 138/66
[2021-08-16] MEDS ORDERED: FURO20TA3 PO (13:32)
== END 2021-08-16 13:38 | disposition home or self-care (01) ==
LOC: ER 10:13
DX: R60.0 Localized edema (principal); E78.00 Pure hypercholesterolemia, unspecified; I10 Essential (primary) hypertension; E03.9 Hypothyroidism, unspecified
CPT/HCPCS: 36415; 71045; 80053; 81001; 83880; 85025; 85379; 87086; 93005; 99285